=== PATIENT | female | born 1960 | race Caucasian/White ===

== ENCOUNTER 2021-04-04 15:54 | Outpatient (CLI) | payer OTHER | END 2021-04-04 15:55 | disposition home or self-care (01) | LOC: CSHMRI 15:54 | PROVIDERS: ATTEND Radiology Radiation Oncology | DX: C79.31 Secondary malignant neoplasm of brain (principal); C34.90 Malignant neoplasm of unspecified part of unspecified bronchus or lung; G93.6 Cerebral edema | CPT/HCPCS: 70553; 82565 ==

== ENCOUNTER 2021-04-08 11:14 | Outpatient (CLI) | payer OTHER | END 2021-04-08 11:15 | disposition home or self-care (01) | LOC: CSHCT 11:14 | PROVIDERS: ATTEND Internal Medicine Hematology & Oncology | DX: C79.51 Secondary malignant neoplasm of bone (principal); C79.31 Secondary malignant neoplasm of brain; C34.90 Malignant neoplasm of unspecified part of unspecified bronchus or lung; R91.1 Solitary pulmonary nodule; J98.4 Other disorders of lung; R59.0 Localized enlarged lymph nodes; E27.8 Other specified disorders of adrenal gland | CPT/HCPCS: 71260; 74177; 82565 ==